=== PATIENT | female | born 1935 | race Caucasian/White ===

== ENCOUNTER → 2019-05-15 | Day surgery (SDC) | payer MEDICARE ==
[2019-05-10 15:06] LABS: BASOPHILS % 0.6 % (0.0-1.0); EOSINOPHILS # (AUTO) 0.3 (0.0-0.4); EOSINOPHILS % 3.7 % (0.0-6.0); HEMATOCRIT 39.8 % (34.2-44.1); HEMOGLOBIN 13.2 g/dL (12.0-16.0); LYMPHOCYTES # (AUTO) 2.4 (1.0-3.2); LYMPHOCYTES % 32.9 % (18.0-39.1); MEAN CORPUSCULAR HEMOGLOBIN 29.7 pg (28-32); MEAN CORPUSCULAR HGB CONC 33.2 g/dL (31-35); MEAN CORPUSCULAR VOLUME 89.6 fL (81-99); MONOCYTES # (AUTO) 0.7 (0.2-0.8); MONOCYTES % 9.8 % (4.4-11.3); NEUTROPHILS # (AUTO) 3.8 (2.1-6.9); NEUTROPHILS % 52.7 % (38.7-80.0); PLATELET COUNT 278 x10e3/uL (140-360); RED BLOOD COUNT 4.44 x10e6/uL (3.6-5.1); RED CELL DISTRIBUTION WIDTH 12.9 % (11.7-14.4)
[2019-05-10 15:26] LABS: ALBUMIN 3.9 g/dL (3.5-5.0); ALBUMIN/GLOBULIN RATIO 1.1 (0.8-2.0); ANION GAP 10.3 mmol/L (8-16); CALCIUM 9.6 mg/dL (8.4-10.2); CREATININE, SERUM 1.24 mg/dL (0.57-1.11); POTASSIUM 4.3 mmol/L (3.5-5.1)
[~2019-05-15] VITALS: Ht 162.6 cm; Wt 95.7 kg
[~2019-05-15] MED LIST: ALPRAZOLAM 0.5 MG TAB ONE; AMLODIPINE BESYL5 MG PO; ASA81 MG PO; DIPHENHYDRAMINE HCL 25 MG CAP ONE; FENOFIBRATE145 MG PO; FENTANYL CITRATE/PF 100MCG/2 ML INJ ONE; HEPARIN SOD/SOD CHLORIDE 2,000 ML ONE; IOPAMIDOL 370 MG/ML 200 ML INFUS..BTL INJ ONE; LASIX20 MG PO; LIDOCAINE HCL 2% LOCAL 20 ML VIAL ONE; METOPROLOL TART50 MG PO; MIDAZOLAM HCL 2 MG/2 ML VIAL ONE; SIMVASTATIN20 MG PO; SODIUM CHLORIDE 0.9% 1000ML 1,000 ML ONE; Z.0.NEXIUM40 MG PO
[2019-05-15 08:42] VITALS: BP 119/46
[2019-05-15 10:41] VITALS: BP 91/71
--- NOTE | 2019-05-15 10:41 | NUR ---
1041 am RECEIVING NOTE [facility]............................................................... Bedside report received from GRIFFIN Sims. Identifierx2. Alert oriented and appropriate, PERRLA, respirations even and unlabored to room air. Pulses x4 extremities equal and strong. Pedal pulses PT/DP X4 Cap fill brisk < 3 sec. Rt leg Mynx site No gross issues pain,pallor,pressure or dysthymia. Skin warm and dry integrity appears D/I. IV 20g to left hand, presents healthy w/o s/s of infiltration or complaint. Abdomen soft and supple. pt offered toileting, denies need to urinate or defecate. No personal affects with patient. Family XXXXX. Pt and family verbalizes understanding of POC. Currently w/o complaint of pain or need. ramos/rn
[2019-05-15 11:00] VITALS: BP 100/77
[2019-05-15 11:30] VITALS: BP 147/77
[2019-05-15 12:00] VITALS: BP 109/51
[2019-05-15 12:30] VITALS: BP 100/60
--- NOTE | 2019-05-15 12:41 | Operative Report ---
DATE OF PROCEDURE: 05/15/2019 SURGEON: Aguilar Faustin MD INDICATIONS: Coronary artery disease, abnormal stress test. PROCEDURES PERFORMED: 1. Left heart catheterization, selective coronary angiography. 2. Selective cannulation of two venous and one arterial bypass conduits. 3. Deployment of right groin Mynx closure device. 4. Conscious sedation administration and monitoring for 35 minutes. DESCRIPTION OF PROCEDURE: Access was obtained in the right femoral artery. A 6-Congolese sheath was placed. Left main had 50% stenosis. Left anterior descending, circumflex and right coronary arteries were all occluded in the proximal portion. Left internal mammary artery bypass to left anterior descending artery widely patent. Saphenous vein bypass to obtuse marginal branch widely patent. Saphenous vein bypass to right coronary artery occluded. No intervention deemed necessary. Right groin repaired using Mynx closure device. The patient discharged home the same day. Aguilar Faustin MD [facility] /[id number]
--- NOTE | 2019-05-15 12:45 | NUR ---
1245 pm [employer] [facility] DISCHARGE NURSING NOTE Pt meets DC criteria. Skin assessed for s/s of complication and presence of hematoma. Skin warm, dry, no discolor, and pulses present. IV removed from left hand. Distal tip appears intact. VS WNL. Pt denies pain, sob, or need at this time. Family at bedside. Review of discharge paperwork and follow up instructions. verbalized understanding. Pt to wheelchair and transported to front of hospital. Transferred to private vehicle under own strength w/o incident with DC paperwork in hand. - ramos/leanna
== END | disposition home or self-care (01) ==
LOC: CATH LAB 07:52
PROVIDERS: ATTEND Internal Medicine Interventional Cardiology
DX: I25.810 Atherosclerosis of coronary artery bypass graft(s) without angina pectoris (principal); R94.39 Abnormal result of other cardiovascular function study; I10 Essential (primary) hypertension; Z01.812 Encounter for preprocedural laboratory examination; Z79.82 Long term (current) use of aspirin; Z68.36 Body mass index [BMI] 36.0-36.9, adult; Z95.1 Presence of aortocoronary bypass graft
CPT/HCPCS: 36415; 80053; 85025; 93455; C1760; J2001; J2250; J3010; J7030; Q9967; 99152; 99153